=== PATIENT | male | born 1935 | race Caucasian/White ===

== ENCOUNTER → 2018-01-16 10:31 | Outpatient (CLI) | payer MEDICARE, SELFPAY ==
[2018-01-16 12:16] LABS: Add Manual Diff / Slide Review NO; Basophils Percent Auto 0.4 % (0-2); Eosinophils Percent Auto 2.5 % (2-4); Hematocrit 39.6 % (41-53); Hemoglobin 13.4 g/dL (13.5-17.5); Lymphocytes Percent Auto 20.4 % (25-40); Mean Corpuscular HGB Conc 33.8 % (30-36); Mean Corpuscular Hemoglobin 32.1 PG (26-34); Mean Corpuscular Volume 94.7 fL (80-100); Monocytes Percent Auto 12.5 % (3-14); Neutrophils Absolute Auto 3700 /uL (3000-5900); Neutrophils Percent Auto 64.2 % (50-75); Platelet Count 169 X10^3/uL (150-400); Red Blood Cell Count 4.18 X10^6/uL (4.5-5.9); Red Cell Distribution Width 14.1 % (11.6-14.8); White Blood Cell Count 5.8 X10^3/uL (4.5-11.0)
[2018-01-16 13:10] LABS: TSH w/ Reflex to FT4 5.73 uIU/mL (0.47-4.68)
[2018-01-16 13:37] LABS: Free T4, Direct Thyroxine 1.14 ng/dL (0.78-2.19)
[2018-01-16 17:14] LABS: Alanine Aminotransferase 94 IU/L (21-72); Albumin 3.9 g/dL (3.5-5.0); Albumin Globulin Ratio 1.5 (1.0-2.8); Alkaline Phosphatase 105 U/L (38-126); Aspartate Aminotransferase 76 IU/L (17-59); BUN Creatinine Ratio 25.6 (6-22); Bilirubin Total 0.4 mg/dL (0.2-1.3); Blood Urea Nitrogen 23 mg/dL (9-20); Calcium 9.5 mg/dL (8.4-10.2); Carbon Dioxide 22 mmol/L (22-32); Chloride 107 mmol/L (98-107); Cholesterol 146 mg/dL (140-199); Estimated Glomerular Filt Rate > 60.0 mL/min (>60); Globulin 2.6 g/dL (1.7-4.1); Glucose 128 mg/dL (80-110); HDL Cholesterol 66 mg/dL (40-60); HEMOLYSIS 16 (0-50); LDL Cholesterol Calculated 51 mg/dL (<100); Potassium 4.7 mmol/L (3.4-5.1); Sodium 141 mmol/L (137-145); Total Protein 6.5 g/dL (6.3-8.2); Triglycerides 146 mg/dL (35-150)
[2018-01-16 17:42] LABS: Prostate Specific Antigen 0.302 ng/mL (0.10-4.00)
== END ==
DX: C61 Malignant neoplasm of prostate (principal); Z79.899 Other long term (current) drug therapy; E78.2 Mixed hyperlipidemia; Z00.00 Encounter for general adult medical examination without abnormal findings
CPT/HCPCS: 36415; 80053; 80061; 84153; 84439; 84443; 85025

== ENCOUNTER → 2018-12-25 07:27 | Outpatient (CLI) | payer MEDICARE, SELFPAY ==
[2018-12-25 09:45] LABS: Cholesterol 167 mg/dL (140-199); HDL Cholesterol 51 mg/dL (40-60); LDL Cholesterol Calculated 78 mg/dL (<100); Triglycerides 189 mg/dL (35-150)
== END ==
PROVIDERS: Visit Provider Internal Medicine Cardiovascular Disease
DX: E78.2 Mixed hyperlipidemia (principal)
CPT/HCPCS: 36415; 80061

== ENCOUNTER → 2021-04-20 08:16 | Outpatient (CLI) | payer MEDICARE, SELFPAY ==
[2021-04-20 19:38] LABS: COVID19 - ORCAS (NP or Nasal) Negative (Negative)
== END ==
PROVIDERS: PCP Physician Assistant; Visit Provider Physician Assistant
DX: Z20.822 Contact with and (suspected) exposure to COVID-19 (principal)
CPT/HCPCS: C9803; U0003

== ENCOUNTER → 2022-01-09 10:59 | Outpatient (CLI) | payer MEDICARE, SELFPAY | PROVIDERS: PCP Physician Assistant; Visit Provider Family Medicine | DX: N39.0 Urinary tract infection, site not specified (principal) | CPT/HCPCS: 87086 ==

== ENCOUNTER → 2022-02-03 12:37 | Outpatient (CLI) | payer MEDICARE, SELFPAY ==
--- NOTE | 2022-02-03 | DI.CT.S_ITS ---
PROCEDURE: CT CYSTOGRAM INDICATIONS: Other injury of bladder, sequela TECHNIQUE: Both before and after gravity instillation of 125 cc 10% Isovue contrast solution into the bladder through a Hargrove catheter, 5 mm axial images acquired from the bladder dome to the symphysis. 5 mm thick coronal and sagittal reformats were acquired. For radiation dose reduction, the following was used: automated exposure control, adjustment of mA and/or kV according to patient size. COMPARISON: None. FINDINGS: Image quality: Excellent. Genitourinary: There is small amount of air in the urinary bladder is well as a Hargrove catheter. Precontrast images demonstrate bladder decompression around the Hargrove catheter. There is trace high-density material along the anterior superior margin of the bladder, potentially iatrogenic. Postcontrast, no definite extravasation of contrast from the urinary bladder. The wall of the bladder is diffusely thickened in contrast outlines coarse trabeculation. No reflux of contrast into the distal ureters. Peritoneum and bowel: Unenhanced bowel loops are normal in caliber and wall thickness. Increased quantity of solid colonic stool. Normal appendix. No pathologic free pelvic fluid. Nodes and vessels: No iliac, pelvic, or inguinal adenopathy by size criteria. Iliac vessels are normal in size. Heavy atherosclerotic calcification of small vessels throughout the pelvis. Bones: Diffusely infiltrative patchy hyperdensity throughout the pelvis and lumbar vertebral bodies. No visible lucencies to suggest pathologic fracture. Miscellaneous: No inguinal hernias. IMPRESSION: 1. No visible extravasation of contrast from the urinary bladder status post installation of 125 cc. 2. Diffuse urinary bladder wall thickening. 3. Extensive patchy sclerosis in the osseous structures suggestive of metastatic disease. Correlate clinically. Dictated by: Ирина Yarbrough M.D. on 02/03/2022 at 16:35 Approved by: Ирина Yarbrough M.D. on 02/03/2022 at 16:44
== END ==
PROVIDERS: PCP Urology; Referring Provider Urology; Visit Provider Urology
DX: S37.29XS Other injury of bladder, sequela (principal); M89.9 Disorder of bone, unspecified
CPT/HCPCS: 72194